=== PATIENT | female | born 1965 | race Caucasian/White ===

== ENCOUNTER 2017-11-24 14:17 | Outpatient (CLI) | payer SELFPAY ==
[~2017-11-24] VITALS: Ht 170.2 cm; Wt 76.4 kg
[2017-11-24 16:05] VITALS: BP 148/78; Ht 170.2 cm; Wt 76.4 kg
== END 2017-11-24 16:25 | disposition home or self-care (01) ==
LOC: D.OPS 14:17 → D.CT 14:17 → D.OPS 16:25
DX: G43.909 Migraine, unspecified, not intractable, without status migrainosus (principal)

== ENCOUNTER 2017-11-26 00:16 | Emergency (ER) | payer SELFPAY ==
[2017-11-24 16:05] VITALS: BMI 26.3
== END 2017-11-26 03:01 | disposition home or self-care (01) ==
LOC: D.ER 00:16
DX: R51 Headache (principal)